=== PATIENT | female | born 1955 | race Caucasian/White ===

== ENCOUNTER → 2017-02-06 | Outpatient (CLI) | payer OTHER ==
--- NOTE | 2017-02-07 09:42 | KCIC ---
Bilateral digital screening mammograms with CAD: HISTORY Routine screening. COMPARISON No previous films available for comparison. New baseline. FINDINGS Breast density category A. The skin and nipples show no abnormalities. No abnormal lymph nodes are seen in the axilla. The breast parenchyma is predominately fatty. There are small circumscribed lesions in the 10 o'clock B position of the right breast measuring 5.7 millimeters in size and in the 2 o'clock B position of the left breast measuring 5.6 millimeters in size. These probably represent small intramammary lymph nodes. Further evaluation with ultrasound can be performed. There are no other dominant masses, suspicious calcifications or architectural distortions. IMPRESSION Small circumscribed lesions at the 10 o'clock B position of the right breast and 2 o'clock B position of the left breast which probably represent small intramammary lymph nodes. These nodules can be further evaluated with ultrasound. This study was interpreted with the benefit of Computerized Aided Detection (CAD). Mammography is not 100% sensitive in detecting breast cancer. Therefore, a self breast exam and a clinical breast exam are very important. A negative mammogram does not negate a clinically suspicious finding and should not result in a delay in biopsying a clinically suspicious abnormality. BI-RADS category 0: Incomplete. Further evaluation with ultrasound is recommended. This patient's information has been entered into a reminder system for the patient to be notified with the results of this examination and a target date for her next mammograms. Electronically signed by: Leda Estrada MD (February 07, 2017 09:02:27)
== END | disposition home or self-care (01) ==
LOC: KCIC MAMMO 11:09
PROVIDERS: ATTEND Family Medicine
DX: Z12.31 Encounter for screening mammogram for malignant neoplasm of breast (principal)
CPT/HCPCS: G0202; 77067

== ENCOUNTER → 2017-02-22 | Outpatient (CLI) | payer OTHER ==
--- NOTE | 2017-02-22 11:36 | KCIC ---
Bilateral breast ultrasound: Reason for examination: Small solid nodules on baseline screening mammogram. Comparison is made to mammographic exam dated 02/06/2017. Ultrasound examination was performed of the breasts bilaterally with attention to the areas of mammographic concern and the axilla. No discrete cystic or solid nodules or architectural distortions are seen. No abnormal lymph nodes are seen in the right or left axilla. IMPRESSION: No discrete nodules seen in the right or left breast. The nodules seen mammographically probably represent intramammary lymph nodes. Recommend reevaluation in 6 months with mammograms and ultrasound. BI-RADS Category 3: Probably Benign. "Our facility is accredited by the [employer] Mammography [employer]." This patient's information has been entered into a reminder system for the patient to be notified with the results of her examination and a target date for the next mammogram. Electronically signed by: Tammy Estrada MD (02/22/2017 11:32 AM)
== END | disposition home or self-care (01) ==
LOC: KCIC US 10:50
PROVIDERS: ATTEND Family Medicine
DX: R92.8 Other abnormal and inconclusive findings on diagnostic imaging of breast (principal)
CPT/HCPCS: 76641